=== PATIENT | male | born 1970 | race Caucasian/White ===

== ENCOUNTER → 2018-07-30 17:02 | Outpatient (CLI) | payer MEDICAID | END | disposition home or self-care (01) | LOC: D.LABREF 17:02 | DX: M19.012 Primary osteoarthritis, left shoulder (principal); Z11.8 Encounter for screening for other infectious and parasitic diseases ==

== ENCOUNTER 2018-08-04 09:51 | Inpatient (IN) | payer MEDICAID ==
[~2018-08-04] VITALS: Ht 175.3 cm; Wt 90.9 kg
[2018-08-29 10:23] LABS: BASOPHILS 0.3 % (0-2); EOSINOPHILS 1.6 % (0-7); HEMATOCRIT 51.3 % (42.0-54.0); HEMOGLOBIN 17.7 g/dL (13.5-17.5); IMMATURE GRANULOCYTES 0.3 % (0-5); LYMPHOCYTES 16.2 % (15-50); MCH 30.9 pg (26.0-34.0); MCHC 34.5 g/dL (31.0-37.0); MCV 89.5 fL (80.0-100.0); MEAN PLATELET VOLUME 10.2 fL (7.4-10.4); MONOCYTES 4.2 % (2-11); NEUTROPHILS 77.4 % (40-80); PLATELET COUNT 234 10x3/uL (130-400); RBC 5.73 10x6/uL (4.20-6.10); RDW 14.1 % (11.5-14.5); WBC 14.9 10x3/uL (4.8-10.8)
[2018-08-29 10:25] LABS: APTT 33.9 SECONDS (22.8-39.4); INR 1.05 (0.85-1.17); PROTIME 13.2 SECONDS (11.6-15.0)
[2018-08-29 10:34] LABS: APPEARANCE CLEAR (CLEAR); BILIRUBIN NEGATIVE (NEGATIVE); COLOR YELLOW (YELLOW); GLUCOSE NEGATIVE (NEGATIVE); KETONE NEGATIVE (NEGATIVE); NITRITE NEGATIVE (NEGATIVE); PROTEIN NEGATIVE (NEGATIVE); UROBILINOGEN NORMAL (NORMAL)
[2018-08-29 10:37] LABS: CALC OSMOLALITY 277 mosm/kg (275-300); CALCIUM 8.9 mg/dL (8.5-10.1); CARBON DIOXIDE 27.1 mmol/L (21.0-32.0); CHLORIDE - SERUM 105 mmol/L (98-107); CREATININE - SERUM 0.9 mg/dL (0.6-1.3); GLUCOSE 105 mg/dL (74-106); POTASSIUM - SERUM 4.6 mmol/L (3.5-5.1); SODIUM 140 mmol/L (136-145); UREA NITROGEN 10 mg/dL (7-18); eGFR NON AFRICAN AMERICAN > 90 mL/min (90-120)
[2018-09-01] VITALS (10 sets, daily range): BP systolic 115–141; BP diastolic 55–90; Ht 175.3 cm; Wt 90.9 kg
--- NOTE | 2018-09-01 10:45 | NUR ---
RECEIVED TO ROOM 2209 VIA BED FROM PACU. A/O X3. NO C/O AT THIS TIME. SKIN IS INTACT WITHOUT REDNESS. DENIES NEEDS.
--- NOTE | 2018-09-01 13:00 | NUR ---
LUNCH SERVED IN ROOM. SISTER AT BEDSIDE.
--- NOTE | 2018-09-01 13:21 | OP ---
PATIENT NAME: SARA CORONADO MEDICAL RECORD: [id number] :72 LOCATION:D.MS [facility] ADMISSION DATE:09/01/18 SURGEON: TORI CHAMPION MD DATE OF OPERATION: 09/01/2018 PREOPERATIVE DIAGNOSIS: Degenerative arthritis, left shoulder. POSTOPERATIVE DIAGNOSIS: Degenerative arthritis, left shoulder. PROCEDURE: Left total shoulder arthroplasty. SURGEON: Tori Champion MD STRATEGIC ADVISOR: ANDRIY Feldman ANESTHESIA: General. INTRAOPERATIVE COMPLICATIONS: None. SUMMARY OF PATHOLOGIC FINDINGS: The patient had extensive osteoarthritis of glenohumeral joint of the left shoulder, consistent with preoperative diagnosis. IMPLANTS USED: Arthrex Univers [place] humeral stem size 6. Arthrex Univers VaultLock glenoid size medium. Arthrex Univers 2 humeral head, size 44/17, offset. OPERATIVE SUMMARY IN DETAIL: After obtaining the appropriate preoperative orthopedic surgery consent as well as anesthetic consultation, evaluation, and clearance, the patient was brought to the operating room and placed on the operating table in the supine position. After general laryngeal mask was administered, the patient was placed in beachchair position. All pressure points were well padded to include down leg peroneal pad as well as axillary roll. The patient was held firmly to the operating table using vacuum pack suction system. The patient's left upper extremity and shoulder were prepped and draped in routine sterile fashion. The arm was held in the Trimano arm holding device. Deltopectoral incision was taken down. The cephalic vein was visualized and protected throughout the case. Clavipectoral fascia was incised. Conjoined tendon was gently retracted laterally while the brown retractor retracted the deltoid laterally. Subscapularis was taken down in peel method. Biceps tendon was tenotomized and saved for later soft tissue tenodesis. Humeral head was then brought into the wound with anterior dislocation. Osteophytes were removed. Humeral head cut was made using humeral head cutting guide for the [place] Univers system. Serial and sequential reaming and broaching were done for size 6. [place] Univers 2 trial was put into place with the small cut protector. The glenoid was then approached. Circumferential labrectomy was then followed by placement of center pin and reaming for a size medium glenoid. Final preparations were made for the VaultLock system. Copious irrigation was then followed by cementing the VaultLock in place. All excess cement was removed after cement was allowed to harden. Attention was returned to the proximal humerus. The size 6 apex body was tamped into place with excellent placement. Inferior and superior screws were then tightened. The 44 x 17 humeral head was dialed to the appropriate position for maximum coverage and tamped into place on the Chavis taper. Shoulder was reduced, taken through range of motion, and found to be appropriately stable. The subscapularis was then reapproximated to the lesser tuberosity in a transosseous fashion using #2 OPERATIVE REPORT [id number] SARA CORONADO followed by tenodesis of the biceps. Final closure was done by Tesfaye Coreas including #1 Vicryl, 2-0 Vicryl, and skin fara. Sterile dressings were applied. Sling was applied. The patient was awakened and taken to the recovery room in stable condition. All final needle and sponge counts were correct. TRANSINT:[id number] Voice Confirmation ID: [id number] DOCUMENT ID: [id number] AKIRA MENDEZ, TORI GOMEZ at 1321 CC: [id number] DICTATION DATE: 09/01/18913 NON DESTRUCTIVE EVALUATION TECHNICIAN: 09/01/18 1152 ADM IN [facility] [address] [place] [address]
[2018-09-01 14:34] LABS: BASOPHILS 0.1 % (0-2); EOSINOPHILS 0 % (0-7); HEMATOCRIT 48.1 % (42.0-54.0); HEMOGLOBIN 16.2 g/dL (13.5-17.5); IMMATURE GRANULOCYTES 0.3 % (0-5); LYMPHOCYTES 4.1 % (15-50); MCH 30.2 pg (26.0-34.0); MCHC 33.7 g/dL (31.0-37.0); MCV 89.6 fL (80.0-100.0); MEAN PLATELET VOLUME 10.3 fL (7.4-10.4); NEUTROPHILS 94.5 % (40-80); PLATELET COUNT 229 10x3/uL (130-400); RBC 5.37 10x6/uL (4.20-6.10); RDW 14.2 % (11.5-14.5); WBC 19.1 10x3/uL (4.8-10.8)
--- NOTE | 2018-09-01 14:43 | NUR ---
REQUESTED AND GIVNE ONE HYDROCODONE PO FOR C/O LEFT SHOULDER PAIN LEVEL 4. WILL MONITOR.
[2018-09-01 14:55] LABS: ALBUMIN 3.4 g/dL (3.4-5.0); ALKALINE PHOSPHATASE 76 U/L (46-116); ALT (SGPT) 11 U/L (10-68); BILIRUBIN - TOTAL 0.39 mg/dL (0.2-1.3); CALC OSMOLALITY 284 mosm/kg (275-300); CALCIUM 8.2 mg/dL (8.5-10.1); CARBON DIOXIDE 24.3 mmol/L (21.0-32.0); CHLORIDE - SERUM 105 mmol/L (98-107); POTASSIUM - SERUM 3.9 mmol/L (3.5-5.1); PROTEIN - SERUM 6.8 g/dL (6.4-8.2); SODIUM 141 mmol/L (136-145); UREA NITROGEN 10 mg/dL (7-18); eGFR NON AFRICAN AMERICAN 85 mL/min (90-120)
[2018-09-01 14:57] LABS: GLUCOSE 187 mg/dL (74-106)
--- NOTE | 2018-09-01 18:46 | NUR ---
ATE ALL OF SUPPER. REPORTS PAIN OK AT THIS TIME. ENCOURAGED TO ASK EVERY 4-5 HOURS TO MAINTAIN LEVEL IN SYSTEM. NO CHANGES NOTED. DENIES NEEDS.
[2018-09-02 01:27] VITALS: BP 109/66
[2018-09-02 05:18] VITALS: BP 134/60
[2018-09-02 06:22] LABS: HEMATOCRIT 44.8 % (42.0-54.0); HEMOGLOBIN 15.1 g/dL (13.5-17.5); MCH 29.9 pg (26.0-34.0); MCHC 33.7 g/dL (31.0-37.0); MCV 88.7 fL (80.0-100.0); MEAN PLATELET VOLUME 10.4 fL (7.4-10.4); PLATELET COUNT 251 10x3/uL (130-400); RBC 5.05 10x6/uL (4.20-6.10); RDW 14.1 % (11.5-14.5)
[2018-09-02 06:29] LABS: ALBUMIN 3.3 g/dL (3.4-5.0); ALKALINE PHOSPHATASE 69 U/L (46-116); ALT (SGPT) 12 U/L (10-68); BILIRUBIN - TOTAL 0.45 mg/dL (0.2-1.3); CALC OSMOLALITY 283 mosm/kg (275-300); CALCIUM 8.3 mg/dL (8.5-10.1); CARBON DIOXIDE 21.8 mmol/L (21.0-32.0); CHLORIDE - SERUM 106 mmol/L (98-107); CREATININE - SERUM 0.8 mg/dL (0.6-1.3); POTASSIUM - SERUM 3.7 mmol/L (3.5-5.1); PROTEIN - SERUM 6.6 g/dL (6.4-8.2); SODIUM 142 mmol/L (136-145); UREA NITROGEN 9 mg/dL (7-18); eGFR NON AFRICAN AMERICAN > 90 mL/min (90-120)
[2018-09-02 06:30] LABS: GLUCOSE 132 mg/dL (74-106)
[2018-09-02 07:44] LABS: ANISOCYTOSIS OCC; LYMPHOCYTES 16 % (15-50); MONOCYTES 10 % (2-11); NEUTROPHILS 73 % (40-80); PLATELET ESTIMATE NORMAL
[2018-09-02 09:17] VITALS: BP 115/63
--- NOTE | 2018-09-02 11:26 | MORECARE ---
CASE MANAGEMENT DISCHARGE SUMMARY PATIENT: SARA WAYNE UNIT: [id number] ADM DATE: 09/01/18 AGE: 47 : 72 SEX: M ROOM/BED: D.2209 AUTHOR: PALMER SCHULTZ PHYSICIAN: REFERRING PHYSICIAN: TORI CHAMPION MD DATE OF SERVICE: 09/02/18 Discharge Plan Patient Name: SARA WAYNE [facility] [facility] 1970 Planned Disposition: Home Anticipated Discharge Date: Discharge Date: Expected LOS: Initial Reviewer: [email or web address] Initial Review Date: 09/01/2018 Generated: 09/02/18 12:26 pm DCPIA - Discharge Planning Initial Assessment Updated by [email or web address]: Sinai Cedillo on 09/02/18 11:22 am * Is the patient Alert and Oriented? Yes * How many steps to enter\exit or inside your home? * PCP amarilys younger apn ([facility] * [facility]acy [facility] * Preadmission Environment Home with Family * ADLs Independent * Equipment None * List name and contact numbers for known caregivers / representatives who currently or will assist patient after discharge: Kristen Wayne [phone] * Verbal permission to speak to the caregivers and representatives has been obtained from the patient. Yes * Community resources currently utilized None * Additional services required to return to the preadmission environment? No * Can the patient safely return to the preadmission environment? Yes * Has this patient been hospitalized within the prior 30 days at any hospital? No Patient Name: SARA WAYNE Page [phone] at 1126 All edits/amendments must be made on the electronic document DICTATION DATE: 09/02/18 112 CRUSHER TENDER: VALERIA 09/02/181124 RPT#: [id number] DC DATE: STATUS: ADM IN [facility] [address] [place] [address] END OF REPORT
--- NOTE | 2018-09-02 11:34 | MORECARE ---
CASE MANAGEMENT DISCHARGE SUMMARY PATIENT: SARA WAYNE UNIT: [id number] ADM DATE: 09/01/18 AGE: 47 : 72 SEX: M ROOM/BED: D.2208 AUTHOR: MARION,DOC PHYSICIAN: REFERRING PHYSICIAN: TORI CHAMPION MD DATE OF SERVICE: 09/02/18 Discharge Plan Patient Name: SARA WAYNE Facility: [facility]:[place] : 1970 Planned Disposition: Home Anticipated Discharge Date: Discharge Date: Expected LOS: Initial Reviewer: [email or web address] Initial Review Date: 09/01/2018 Generated: 09/02/18 12:34 pm Comments DCP- Discharge Planning Updated by [email or web address]: Sinai Cedillo on 09/02/18 10:[address] Patient Name: SARA WAYNE Admission Status: Elective Accout number: [id number] Admission Date: 09-01-2018 : 1970 Admission Diagnosis: Attending: TORI CHAMPION Current LOS: 1 Anticipated DC Date: Planned Disposition: Home Primary Insurance: MEDICAID [place] Discharge Planning Comments: CM met with patient to complete initial dc planning assessment. CM educated patient on the CM role and verbal consent given by patient to complete assessment. Patient lives at home with his mother in [facility] where he is independent with his care. At discharge patient plans to return home and feels this is a safe discharge. CM discussed availability of home health, rehab services, and medical equipment. Patient denied known discharge needs at this time. 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 CM will continue to follow and will assist as needed with dc plans/needs. Prison Officer: Sinai Cedillo DCPIA - Discharge Planning Initial Assessment Updated by [email or web address]: Sinai Cedillo on 09/02/18 11:22 am * Is the patient Alert and Oriented? Yes * How many steps to enter\exit or inside your home? * PCP am[facility]ilys younger apn ([facility]) * Pharmacy [facility] * Preadmission Environment Home with Family * ADLs Independent * Equipment None * List name and contact numbers for known caregivers / representatives who currently or will assist patient after discharge: Kristen Wayne [phone] * Verbal permission to speak to the caregivers and representatives has been obtained from the patient. Yes * Community resources currently utilized None * Additional services required to return to the preadmission environment? No * Can the patient safely return to the preadmission environment? Yes * Has this patient been hospitalized within the prior 30 days at any hospital? No Last DP export: 09/02/18 10:26 am Patient Name: SARA WAYNE Page [phone] at 1134 All edits/amendments must be made on the electronic document DICTATION DATE: 09/02/181133 CITY DETECTIVE: VALERIA 09/02/184 RPT#: [id number] UT DATE: STATUS: ADM IN [facility] [address] [place] [address] END OF REPORT
[2018-09-02 12:45] VITALS: BP 126/71
[2018-09-02 14:18] LABS: APPEARANCE CLEAR (CLEAR); BILIRUBIN NEGATIVE (NEGATIVE); COLOR YELLOW (YELLOW); GLUCOSE NEGATIVE (NEGATIVE); KETONE NEGATIVE (NEGATIVE); NITRITE NEGATIVE (NEGATIVE); PROTEIN NEGATIVE (NEGATIVE); UROBILINOGEN NORMAL (NORMAL)
[2018-09-02 17:17] VITALS: BP 105/62
--- NOTE | 2018-09-02 19:43 | NUR ---
I have reviewed this patient and I concur with the Shift Assessment completed by the Licensed Practical Nurse today this shift.
--- NOTE | 2018-09-02 20:49 | NUR ---
AWAKE,ALERT,COMPLAINTS OF PAIN 03/10. PERCOCET 1 TAB GIVEN PER REQUEST. STATES'NORCO DOESNT WORK TO WELL,WANNA TRY THE PERCOCET.".DRSG TO LEFT SHOULDER INTACT WITHOUT DRAINAGE NOTED. SL TO RFA WITHOUT REDNESS OR EDEMA NOTED.CL IN REACH
[2018-09-03 00:07] VITALS: BP 116/65
--- NOTE | 2018-09-03 01:28 | NUR ---
I have reviewed this patient and I concur with the Shift Assessment completed by the Licensed Practical Nurse today this shift.
[2018-09-03 06:06] VITALS: BP 126/78
[2018-09-03 06:15] LABS: BASOPHILS 0.2 % (0-2); EOSINOPHILS 1.1 % (0-7); HEMATOCRIT 43.7 % (42.0-54.0); HEMOGLOBIN 14.8 g/dL (13.5-17.5); IMMATURE GRANULOCYTES 0.4 % (0-5); LYMPHOCYTES 23.4 % (15-50); MCH 30.3 pg (26.0-34.0); MCHC 33.9 g/dL (31.0-37.0); MCV 89.4 fL (80.0-100.0); MEAN PLATELET VOLUME 10.4 fL (7.4-10.4); MONOCYTES 9.8 % (2-11); NEUTROPHILS 65.1 % (40-80); PLATELET COUNT 225 10x3/uL (130-400); RBC 4.89 10x6/uL (4.20-6.10); RDW 14.5 % (11.5-14.5)
[2018-09-03 06:24] LABS: ALBUMIN 3.2 g/dL (3.4-5.0); ALKALINE PHOSPHATASE 59 U/L (46-116); ALT (SGPT) 16 U/L (10-68); BILIRUBIN - TOTAL 0.55 mg/dL (0.2-1.3); CALC OSMOLALITY 283 mosm/kg (275-300); CALCIUM 8.2 mg/dL (8.5-10.1); CARBON DIOXIDE 27.4 mmol/L (21.0-32.0); CHLORIDE - SERUM 105 mmol/L (98-107); CREATININE - SERUM 0.8 mg/dL (0.6-1.3); GLUCOSE 91 mg/dL (74-106); POTASSIUM - SERUM 3.8 mmol/L (3.5-5.1); PROTEIN - SERUM 6.4 g/dL (6.4-8.2); SODIUM 143 mmol/L (136-145); UREA NITROGEN 10 mg/dL (7-18); eGFR NON AFRICAN AMERICAN > 90 mL/min (90-120)
[2018-09-03 06:38] LABS: WBC 12.8 10x3/uL (4.8-10.8)
--- NOTE | 2018-09-03 08:11 | NUR ---
AWAKE AND ALERT. ORIENTED X3. C/O LEFT SHOULDER PAIN LEVEL 3. REQUESTED AND GIVNE ONE PERCOCET PO FOR SAME. WILL MONITOR. LUNGS ARE CLEAR BILATERALLY, NO COUGH NOTED. SKIN IS INTACT WITHOUT REDNESS EXCEPT INCISION TO LEFT SHOULDER WHICH HAS A DRY INTACT DRESSING IN PLACE. SL TO RIGHT FOREARM IS PATENT WITHOUT REDNESS AT INSERTION SITE. DENIES NEEDS.
[2018-09-03 08:47] VITALS: BP 123/86
[2018-09-03] MEDS ORDERED: PERCOCET 10-321 EAC1 PO (09:14)
[2018-09-03] MEDS ORDERED: OMNICEF300 MG PO (09:33)
--- NOTE | 2018-09-03 12:42 | NUR ---
DISCHARGED TO HOME WITH FAMILY AMBULATORY. DISCHARGE INSTRUCTIONS GIVEN BOTH VERBALLY AND WRITTEN. ALL QUESTIONS ANSWERED. PATIENT VERBALIZED UNDERSTANDING OF SAME. SL TO RIGHT FOREARM D/C WITH CATHETER INTACT. ALL BELONGINGS WITH PATIENT. REQUESTED AND GIVEN ONE PERCOCET PO FOR C/O LEFT SHOULDER PAIN LEVEL 3 FOR THE RIDE HOME.
--- NOTE | 2018-09-03 12:52 | MORECARE ---
CASE MANAGEMENT DISCHARGE SUMMARY PATIENT: SARA WAYNE UNIT: [id number] ADM DATE: 09/01/18 AGE: 47 : 72 SEX: M ROOM/BED: D.2201 AUTHOR: PALMER SCHULTZ PHYSICIAN: REFERRING PHYSICIAN: TORI CHAMPION MD DATE OF SERVICE: 09/03/18 Discharge Plan Patient Name: SARA WAYNE Facility: [facility]:[place] : 1970 Planned Disposition: Home Anticipated Discharge Date: Discharge Date: 09/03/2018 Expected LOS: Initial Reviewer: [email or web address] Initial Review Date: 09/01/2018 Generated: 09/03/18 1:52 pm Comments DCP- Discharge Planning Updated by [email or web address]: Sinai Cedillo on 09/03/18 11:[address] Patient Name: SARA WAYNE Encounter No: [id number] : 1970 Primary Insurance: MEDICAID [place] Anticipated DC Date: Planned Disposition: Home External Planned Provider: : DCP follow-up note: Patient and family in agreement with discharge plan. No changes to plan. Case management will follow and assist as needed. Sinai Cedillo DCP- Discharge Planning Updated by [email or web address]: Sinai Cedillo on 09/02/18 10:[address] Patient Name: SARA WAYNE Admission Status: Elective Accout number: [id number] Admission Date: 09-01-2018 : 1970 Admission Diagnosis: Attending: TORI CHAMPION Current LOS: 1 Anticipated DC Date: Planned Disposition: Home Primary Insurance: MEDICAID [place] Discharge Planning Comments: CM met with patient to complete initial dc planning assessment. CM educated patient on the CM role and verbal consent given by patient to complete assessment. Patient lives at home with his mother in [facility] where he is independent with his care. At discharge patient plans to return home and feels this is a safe discharge. CM discussed availability of home health, rehab services, and medical equipment. Patient denied known discharge needs at this time. 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 CM will continue to follow and will assist as needed with dc plans/needs. Electron Microscopist: Sinai Cedlilo DCPIA - Discharge Planning Initial Assessment Updated by [email or web address]: Sinai Cedillo on 09/02/18 11:22 am * Is the patient Alert and Oriented? Yes * How many steps to enter\exit or inside your home? * PCP am[facility]il[facility] younger apn ([facility] * [facility] * Preadmission Environment Home with Family * ADLs Independent * Equipment None * List name and contact numbers for known caregivers / representatives who currently or will assist patient after discharge: Kristen Wayne [phone] * Verbal permission to speak to the caregivers and representatives has been obtained from the patient. Yes * Community resources currently utilized None * Additional services required to return to the preadmission environment? No * Can the patient safely return to the preadmission environment? Yes * Has this patient been hospitalized within the prior 30 days at any hospital? No Last DP export: 09/02/18 10:34 am Patient Name: SARA WAYNE Page [phone] at 1252 All edits/amendments must be made on the electronic document DICTATION DATE: 09/03/18 1251 ROTARY SLICING MACHINE OPERATOR: VALERIA 09/03/18 1251 RPT#: [id number] DC DATE:09/03/18 STATUS: DIS IN [facility] [address] [place] [address] END OF REPORT
== END 2018-09-03 12:44 | disposition home or self-care (01) | DRG 483 ==
LOC: D.MS 09-01 05:10 → D.SDCHOLD 09-01 05:10 → D.MS 09-01 10:33 → D.SDCHOLD 09-01 12:45 → D.MS 09-03 12:44
PROVIDERS: Emergency Medicine; ADMIT Orthopaedic Surgery; ATTEND Orthopaedic Surgery
PROC: 0RRK0JZ Replacement of Left Shoulder Joint with Synthetic Substitute, Open Approach (ICD-10-PCS; principal; 2018-09-01 07:30)
DX: M19.012 Primary osteoarthritis, left shoulder (principal); F17.213 Nicotine dependence, cigarettes, with withdrawal; D62 Acute posthemorrhagic anemia; D72.829 Elevated white blood cell count, unspecified

== ENCOUNTER 2018-12-15 09:13 | Day surgery (SDC) | payer MEDICAID ==
[~2018-12-15] VITALS: Ht 175.3 cm; Wt 91.2 kg
[~2018-12-15 09:13] MED LIST: OMNICEF300 MG PO; PERCOCET 10-321 EAC1 PO
[2018-12-15 11:07] VITALS: BP 128/84; Ht 175.3 cm; Wt 91.2 kg
[2018-12-15] MEDS ORDERED: HYDROCODON-ACE1 EA10 PO (15:00)
--- NOTE | 2018-12-16 15:00 | OP ---
PATIENT NAME: SARA CORONADO MEDICAL RECORD: [id number] :72 LOCATION:D.OPS ADMISSION DATE: SURGEON: TORI CHAMPION MD DATE OF OPERATION: 12/15/2018 PREOPERATIVE DIAGNOSIS: Painful olecranon bursa of the left elbow. POSTOPERATIVE DIAGNOSIS: Painful olecranon bursa of the left elbow. PROCEDURE: Excision of left olecranon bursa, left elbow. SURGEON: Tori Champion MD ANESTHESIA: General. INTRAOPERATIVE COMPLICATIONS: None. SUMMARY OF PATHOLOGIC FINDINGS: The patient did have a large olecranon bursa noninfected that was taken out in its entirety without rupture. WIND OPERATIONS MANAGER: Db Varela. DESCRIPTION OF PROCEDURE: After obtaining the appropriate preoperative orthopedic surgery consent as well as anesthetic consultation, evaluation and clearance, the patient was brought to the operating room and placed on the operating table in supine position. After adequate general laryngeal mask airway was administered, a tourniquet was placed on the proximal aspect of the left upper extremity. Left upper extremity was then prepped and draped in routine sterile fashion. At this point, appropriate timeout was done and agreed upon by all. Arm was elevated and exsanguinated, tourniquet was inflated to 350 mmHg. Incision was made over the posterior aspect just lateral to the olecranon tip skin. Dissection was carried about the incision medially, laterally, proximally and distally and then across the bottom. The olecranon in its entirety was taken out without rupture. This was sent to pathology for final specimen. The wound was then copiously irrigated and closed with 2-0 followed by 4-0 Prolene in a running fashion. Sterile dressings were applied. Tourniquet was deflated. The patient was awakened and taken to recovery room in stable condition. All final needle and sponge counts were correct. TRANSINT:[id number] Voice Confirmation ID: [id number] DOCUMENT ID: [id number] KAIRA MENDEZ, TORI GOMEZ at 1500 CC: [id number] DICTATION DATE: 12/16/18 0845 EQUIPMENT TECH: 12/16/18 0953 [facility] 12/15/18 [place] [address]
== END 2018-12-15 16:50 | disposition home or self-care (01) ==
LOC: D.OPS 09:13 → D.PAN 15:45 → D.OPS 16:50
PROVIDERS: ATTEND Orthopaedic Surgery
DX: M25.522 Pain in left elbow (principal)

== ENCOUNTER → 2019-03-16 13:31 | Outpatient (CLI) | payer MEDICAID ==
[2018-12-15 11:07] VITALS: BMI 29.7
[~2019-03-16 13:31] MED LIST changes: +HYDROCODON-ACE1 EA10 PO
== END | disposition home or self-care (01) ==
LOC: D.MRI 13:30
PROVIDERS: ATTEND Orthopaedic Surgery
DX: S83.522A Sprain of posterior cruciate ligament of left knee, initial encounter (principal)

== ENCOUNTER 2019-05-25 05:19 | Day surgery (SDC) | payer MEDICAID ==
[~2019-05-25] VITALS: Ht 175.3 cm; Wt 90.7 kg
[2019-05-25 06:30] VITALS: BP 123/81; Ht 175.3 cm; Wt 90.7 kg
[2019-05-25] MEDS ORDERED: HYDROCODON-ACE1 EA10 PO (08:36)
--- NOTE | 2019-05-25 10:37 | NUR ---
1025-DISCHARGE CRITERIA MET. IV REMOVED WITH CATH INTACT,DISPOSED INTO SHAPRS,COVERED SITE WITH BANDAID. ESCORTED OUT VIA W/C BY VOLUNTEER WITH SPOUSE AWAITING TO DRIVE HOME.
--- NOTE | 2019-05-25 16:11 | OP ---
PATIENT NAME: SARA CORONADO MEDICAL RECORD: [id number] :72 LOCATION:[facility] ADMISSION DATE: SURGEON: TORI CHAMPION MD DATE OF OPERATION: 05/25/2019 PREOPERATIVE DIAGNOSES: 1. Medial meniscus tear of the left knee. 2. Lateral meniscus tear of the left knee. POSTOPERATIVE DIAGNOSES: 1. Medial meniscus tear of the left knee. 2. Lateral meniscus tear of the left knee. PROCEDURE: 1. Left knee arthroscopy with arthroscopic partial medial meniscectomy. 2. Left knee arthroscopy with arthroscopic partial lateral meniscectomy. SURGEON: Tori Champion MD ANESTHESIA: General. INTRAOPERATIVE COMPLICATIONS: None. 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 The patient had a posteromedial root tear of the lateral horn that required debridement; however, it was stable. OPERATIVE SUMMARY IN DETAIL: After obtaining the appropriate preoperative orthopedic surgery consent as well as anesthetic consultation, evaluation and clearance, the patient was brought to the operating room and placed on the operating table in supine position. After adequate general laryngeal mask airway was administered, tourniquet was placed on the proximal aspect of the left lower extremity. Left lower extremity was then prepped and draped in routine sterile fashion. The leg was elevated and exsanguinated. Tourniquet was inflated to 350 mmHg. Routine inferolateral portal was established followed by superomedial portal and inferomedial portal. Diagnostic arthroscopy showed the patient to have the above mentioned findings. Attention was first turned to the medial meniscus. Arthroscopic portal and resector were utilized along with a meniscotome to debride the medial meniscus and what was nearly a subtotal medial meniscectomy. Due to the extreme amount of tearing and maceration of the posterior horn of medial meniscus, bileaflet tear was essentially excised. Having completed this, the knee was placed in a aqrpup-hy-dyjk position and a resector was then utilized to debride the posterior medial corner of the lateral meniscus. 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 This was gently debrided as well. Having completed this, the knee was insufflated with 30 cc of 0.25% Marcaine with epinephrine and 80 mg of Depo-Medrol. Arthroscopy portals were closed in routine interrupted fashion using 4-0 Prolene. Sterile dressings were applied. The patient was awakened and taken to recovery room in stable condition. All final needle and sponge counts were correct. TRANSINT:[id number] Voice Confirmation ID: [id number] DOCUMENT ID: [id number] OPERATIVE REPORT [id number] SARA CORONADO MD, TORI GOMEZ at 1611 CC: [id number] DICTATION DATE: 05/25/19916 SMT OPERATOR: 05/25/19 1017 DEP [facility] 05/25/19 [facility] [address] [place] [address]
== END 2019-05-25 10:25 | disposition home or self-care (01) ==
LOC: D.OPS 05:19 → D.PAN 07:30 → D.OPS 07:30
PROVIDERS: ATTEND Orthopaedic Surgery
DX: S83.242A Other tear of medial meniscus, current injury, left knee, initial encounter (principal); S83.282A Other tear of lateral meniscus, current injury, left knee, initial encounter; X58.XXXA Exposure to other specified factors, initial encounter